=== PATIENT | male | born 1985 | race Caucasian/White ===

== ENCOUNTER 2018-11-12 18:52 | Emergency (ER) | payer OTHER | END 2018-11-12 21:12 | disposition home or self-care (01) | LOC: FER 18:52 ==

== ENCOUNTER 2023-09-29 22:04 | Emergency (ER) | payer OTHER ==
[2023-09-29 22:11] VITALS: BP 117/91; PULSE 61; RESP 20; TEMP 98; BMI 35.7
[2023-09-29] MEDS: ONDANSETRON *ODT* 4 MG TABLET SL ONE (23:05)
[2023-09-29] MEDS ORDERED: ONDANSETRON *ODT* 4 MG TABLET ONE (23:07)
[2023-09-29] MEDS ORDERED: ACETAMINOPHEN 325 MG TABLET (FP) ONE (23:07)
[2023-09-29] MEDS: ACETAMINOPHEN 1000 MG/100 ML BAG IVPB ONE (23:40)
[2023-09-29] MEDS: ACETAMINOPHEN 500 MG TABLET (FP) PO ONE (23:40)
[2023-09-29] MEDS: ONDANSETRON 4 MG/2 ML VIAL IVPUSH ONE (23:40)
[2023-09-29] MEDS: KETOROLAC TROMETHAMINE 15 MG/ML VIAL IVPUSH ONE (23:41)
[2023-09-29] MEDS ORDERED: ONDANSETRON 4 MG/2 ML VIAL ONE (23:42)
[2023-09-29] MEDS ORDERED: ACETAMINOPHEN INJECTION 100 ML IVPB ONE (23:42)
[2023-09-30 00:12] LABS: BASO % 0.4 % (0-2.0); EOS % 3.6 % (0-4.5); HEMATOCRIT 41.2 % (35.4-49); HEMOGLOBIN 13.6 GM/dL (11.7-16.9); LYMPH % 25.8 % (8-40); MCH 27.3 pg (25.7-33.7); MEAN CELL VOLUME 82.8 fl (80-96); MEAN PLT VOLUME 8.8 fl (7.5-11.1); MONO % 7.6 % (3.8-10.2); NEUT % 62.6 % (42.8-82.8); PLATELET COUNT 303 10^3/uL (134-434); RBC 4.97 M/mm3 (4.00-5.60); RDW 14.9 % (11.9-15.9); WHITE BLOOD COUNT 7.2 K/mm3 (4.0-10.0)
[2023-09-30 00:18] LABS: INR 0.94 (0.83-1.09); PROTHROMBIN TIME (PATIENT) 10.8 SEC (9.7-13.0)
[2023-09-30 00:20] LABS: ACTIVATED PTT 30.1 SECONDS (25.2-36.5)
[2023-09-30 00:25] LABS: POTASSIUM 4.3 mmol/L (3.5-5.1)
[2023-09-30 00:27] LABS: ALBUMIN 4.1 g/dl (3.4-5.0); CALCIUM 9.3 mg/dL (8.5-10.1)
[2023-09-30 00:30] LABS: CREATININE 0.8 mg/dL (0.55-1.3)
[2023-09-30 00:32] LABS: BILIRUBIN,TOTAL 0.4 mg/dL (0.2-1); TOT PROT 7.7 g/dl (6.4-8.2)
[2023-09-30] MEDS: METHOCARBAMOL 500 MG TABLET PO ONE (01:00)
[2023-09-30] MEDS ORDERED: METHOCARBAMOL 500 MG TABLET ONE (01:01)
== END 2023-09-30 01:08 | disposition home or self-care (01) ==
LOC: JER 22:04
PROC: 3E033NZ Introduction of Analgesics, Hypnotics, Sedatives into Peripheral Vein, Percutaneous Approach (ICD-10-PCS; principal; 2023-09-29)
PROC: 3E033GC Introduction of Other Therapeutic Substance into Peripheral Vein, Percutaneous Approach (ICD-10-PCS; 2023-09-29)
DX: S06.0X0A Concussion without loss of consciousness, initial encounter (principal); R11.2 Nausea with vomiting, unspecified; M54.2 Cervicalgia; R42 Dizziness and giddiness; V49.50XA Passenger injured in collision with unspecified motor vehicles in traffic accident, initial encounter
CPT/HCPCS: 36415; 70450-TC; 70486-TC; 72125-TC; 80053; 85025; 85610; 85730; 86850; 86900; 86901; 99284-25; J0131; Q0162